=== PATIENT | female | born 1995 | race Caucasian/White ===

== ENCOUNTER 2021-09-13 22:16 | Emergency (ER) | payer SELFPAY ==
[2021-09-13 23:17] LABS: Bilirubin Neg (Negative); Blood, Urine Negative (Negative); Clarity Clear (Clear); Glucose, Urine (Dipstick) Normal (Negative); Ketone, Urine Negative (Negative); Leukocyte 100 (Negative); Nitrite Negative (Negative); Protein, Urine (Dipstick) Negative (Neg-Trace); Specific Gravity, Urine 1.015 (1.002-1.036); Urobilinogen Normal mg/dL (Less than 2)
[2021-09-13 23:25] LABS: ALT (SGPT) 7 U/L (8-55); AST (SGOT) 12 U/L (5-34); Albumin 3.6 g/dL (3.5-5.0); Alkaline Phosphatase 40 U/L (40-110); Anion Gap 12 mmol/L (10-20); BUN (Urea Nitrogen) 5 mg/dL (7.0-18.7); Bilirubin, Total 0.5 mg/dL (0.2-1.2); Calc. Creatinine Clearance 0 mL/min (70-130); Carbon Dioxide 22 mmol/L (22-29); Chloride 106 mmol/L (98-107); Estimated GFR 126; Globulin 2.7 g/dL (2.4-3.5); Glucose 88 mg/dL (70-105); Lipase 13 U/L (8-78); Magnesium 1.6 mg/dL (1.6-2.6); Potassium 3.4 mmol/L (3.5-5.1); Protein, Total 6.3 g/dL (6.0-8.3); Sodium 137 mmol/L (136-145)
[2021-09-13 23:27] LABS: Bacteria/HPF 4+ HPF (None Seen); Mucous/LPF 3+ LPF (<2+); RBC/HPF None Seen HPF (0-3); WBC/HPF 0-3 HPF (0-3)
[2021-09-13 23:32] LABS: #Eosinphils 0.1 10x3/uL (0.0-0.5); #Monocytes 0.8 10x3/uL (0.0-1.1); %Basophils 0.3 % (0.0-2.0); %Eosinophils 0.6 % (0.0-6.0); Hemoglobin 10.2 g/dL (12.0-15.5); Mean Corpuscular HGB CONC 35.3 g/dL (32.0-36.0); Mean Corpuscular Hemoglobin 30.5 pg (27.0-33.0); Mean Corpuscular Volume 86.5 fl (81.6-98.3); Mean Platelet Volume 10.2 fl (7.4-10.4); Platelet Count 270 10x3/uL (150-450); RBC Distribution Width 13.4 % (11.5-14.5); Red Blood Cell (RBC) Count 3.34 10x6/uL (3.90-5.03); White Blood Cell (WBC) Count 11.8 10x3/uL (3.5-10.5)
== END 2021-09-13 23:55 | disposition home or self-care (01) ==
LOC: CSHERS 22:16
DX: O99.891 Other specified diseases and conditions complicating pregnancy (principal); R10.30 Lower abdominal pain, unspecified; M54.50 Low back pain, unspecified; Z3A.19 19 weeks gestation of pregnancy
CPT/HCPCS: 36415; 80053; 81003; 81015; 83690; 83735; 85025; 99284

== ENCOUNTER 2021-10-09 22:12 | Day surgery (SDC) | payer SELFPAY ==
[2021-10-09] MEDS ORDERED: hydrALAZINE 20 MG/ML VIAL SLOW IVP PRN (22:45)
== END 2021-10-09 22:53 | disposition home or self-care (01) ==
LOC: CSHLD/OP 22:12
PROVIDERS: ATTEND Family Medicine
DX: O36.8130 Decreased fetal movements, third trimester, not applicable or unspecified (principal); Z3A.23 23 weeks gestation of pregnancy; Z79.899 Other long term (current) drug therapy
CPT/HCPCS: 99282

== ENCOUNTER 2021-10-12 16:53 | Outpatient (CLI) | payer OTHER | END 2021-10-12 16:54 | disposition home or self-care (01) | LOC: CSHRAD 16:53 | PROVIDERS: ATTEND Family Medicine | DX: Z34.82 Encounter for supervision of other normal pregnancy, second trimester (principal); Z3A.23 23 weeks gestation of pregnancy | CPT/HCPCS: 76805 ==

== ENCOUNTER 2022-01-04 16:42 | Day surgery (SDC) | payer OTHER ==
[2022-01-04 17:18] VITALS: BMI 22.4
[2022-01-04] MEDS ORDERED: hydrALAZINE 20 MG/ML VIAL SLOW IVP PRN (17:30)
[2022-01-04 18:17] LABS: Fetal Membranes Rupture No Membranes Rupture (No Rupture)
== END 2022-01-04 19:14 | disposition home or self-care (01) ==
LOC: CSHLD/OP 16:42
PROVIDERS: ATTEND Family Medicine
DX: O26.893 Other specified pregnancy related conditions, third trimester (principal); M54.50 Low back pain, unspecified; O36.8330 Maternal care for abnormalities of the fetal heart rate or rhythm, third trimester, not applicable or unspecified; O99.343 Other mental disorders complicating pregnancy, third trimester; F32.A Depression, unspecified; O34.523 Maternal care for prolapse of gravid uterus, third trimester; Z3A.35 35 weeks gestation of pregnancy; Z79.899 Other long term (current) drug therapy
CPT/HCPCS: 84112; 99283

== ENCOUNTER 2022-01-11 01:07 | Inpatient (IN) | payer OTHER ==
[2022-01-11 01:34] VITALS: BMI 23.1
[2022-01-11] MEDS ORDERED: hydrALAZINE 20 MG/ML VIAL SLOW IVP PRN ×3 (03:10→18:14)
[2022-01-11] MEDS ORDERED: Ondansetron PF 4 MG/2 ML Vial IVP SCH (04:15)
[2022-01-11] MEDS ORDERED: Acetaminophen 500 MG TAB PO SCH (04:45)
[2022-01-11] MEDS ORDERED: Bupivacaine 0.25% HCL 30 ML VIAL ONE (08:00)
[2022-01-11] MEDS ORDERED: Misoprostol 200 MCG TAB PR PRN (08:18)
[2022-01-11] MEDS ORDERED: Ondansetron PF 4 MG/2 ML Vial IVP PRN ×2 (08:18→18:14)
[2022-01-11] MEDS ORDERED: Methylergonovine 0.2 MG/ML VIAL IM PRN (08:18)
[2022-01-11] MEDS ORDERED: Promethazine HCl 25 MG/ML VIAL IM PRN ×2 (08:18→18:14)
[2022-01-11] MEDS ORDERED: Diphenoxylate HCl/Atropine Tablet PO PRN (08:18)
[2022-01-11] MEDS ORDERED: Acetaminophen 500 MG TAB PO PRN (08:18)
[2022-01-11] MEDS ORDERED: Ibuprofen 800 MG TAB PO PRN (08:18)
[2022-01-11] MEDS ORDERED: Carboprost 250 MCG/ML AMP IM PRN (08:18)
[2022-01-11] MEDS ORDERED: HYDROcodone/Acetaminophen 5/325 mg Tablet PO PRN (08:18)
[2022-01-11] MEDS ORDERED: Lidocaine 1% (PF) 30 ML VIAL SC PRN (08:18)
[2022-01-11] MEDS ORDERED: Penicillin G Potassium 5 MILL.UNITS in Sodium Chloride 0.9% 100 ML IVPB SCH (08:30)
[2022-01-11] MEDS ORDERED: NS w/ Oxytocin 30 units 500 ML IV SCH ×3 (08:30→18:14)
[2022-01-11] MEDS: Lactated Ringer's 1,000 ML IV SCH ×2 (08:41→16:24)
[2022-01-11] MEDS: Butorphanol Tartrate 1 MG/ML VIAL SLOW IVP PRN ×4 (08:44→15:23)
[2022-01-11 09:42] LABS: Mean Corpuscular HGB CONC 34.1 g/dL (32.0-36.0); Mean Corpuscular Hemoglobin 30.3 pg (27.0-33.0); Mean Corpuscular Volume 88.8 fl (81.6-98.3); Mean Platelet Volume 10.8 fl (7.4-10.4); Platelet Count 270 10x3/uL (150-450); RBC Distribution Width 12.6 % (11.5-14.5); White Blood Cell (WBC) Count 12.8 10x3/uL (3.5-10.5)
[2022-01-11 10:20] LABS: HBSAg Index 0.17 S/CO (0-0.99); Hep B Surf Ag Non-Reactive S/CO (NonReactive); Syphilis Antibody Nonreactive (Nonreactive); Syphilis Antibody Index 0.03 S/CO (<1.00 Non-Reactive)
[2022-01-11] MEDS: Penicillin G 2.5 MILL.units 2.5 MILL.UNITS in Premix Bag 1 BAG IVPB SCH ×2 (12:57→16:47)
[2022-01-11] MEDS ORDERED: Fentanyl 2 mcg/Bup 0.1% Cadd 100 ML ONE (16:04)
[2022-01-11] MEDS ORDERED: Preparation H Ointment 28 GM TUBE PR PRN (18:14)
[2022-01-11] MEDS ORDERED: diphenhydrAMINE 25 MG CAP PO PRN (18:14)
[2022-01-11] MEDS ORDERED: Benzocaine-Menthol 82.5 ML CAN TOP PRN (18:14)
[2022-01-11] MEDS ORDERED: Lanolin Ointment 7 GM TUBE TOP PRN (18:14)
[2022-01-11] MEDS ORDERED: Bisacodyl 10 MG SUPP PR PRN (18:14)
[2022-01-11] MEDS ORDERED: Milk Of Magnesia 30 ML UDCUP PO PRN (18:14)
[2022-01-11] MEDS: HYDROcodone/Acetaminophen 5/325 mg Tablet PO PRN (19:59)
[2022-01-11] MEDS: Ibuprofen 800 MG TAB PO SCH (21:54)
[2022-01-11] MEDS: Docusate 100 MG CAP PO SCH (21:55)
[2022-01-12] MEDS: HYDROcodone/Acetaminophen 5/325 mg Tablet PO PRN ×3 (00:44→21:49)
[2022-01-12] MEDS: Ibuprofen 800 MG TAB PO SCH ×3 (06:16→21:49)
[2022-01-12] MEDS: Docusate 100 MG CAP PO SCH ×2 (08:47→21:49)
[2022-01-12] MEDS: Prenatal Vitamin 1 TAB PO SCH (08:47)
[2022-01-12] MEDS: Ferrous Sulfate 325 MG TAB PO SCH ×2 (08:47→17:11)
[2022-01-12] MEDS: Cyclobenzaprine 10 MG TAB PO PRN (10:56)
[2022-01-12] MEDS ORDERED: DULoxetine 30 MG CAP PO SCH (11:00)
[2022-01-12] MEDS ORDERED: Boostrix 0.5 ML (Tdap) VIAL (>/=7 yrs of age) IM ONE (18:14)
[2022-01-13] MEDS: HYDROcodone/Acetaminophen 5/325 mg Tablet PO PRN ×4 (02:00→15:33)
[2022-01-13] MEDS: Ibuprofen 800 MG TAB PO SCH ×4 (05:53→21:38)
[2022-01-13] MEDS: Docusate 100 MG CAP PO SCH ×2 (08:53→21:38)
[2022-01-13] MEDS: Prenatal Vitamin 1 TAB PO SCH (08:53)
[2022-01-13] MEDS: Ferrous Sulfate 325 MG TAB PO SCH ×2 (08:53→18:14)
[2022-01-13] MEDS: Cyclobenzaprine 10 MG TAB PO PRN ×2 (08:59→15:33)
[2022-01-13] MEDS ORDERED: DULoxetine 30 MG CAP PO SCH (09:00)
[2022-01-13] MEDS: tiZANidine HCl 4 MG TAB PO SCH (21:38)
[2022-01-14] MEDS: HYDROcodone/Acetaminophen 5/325 mg Tablet PO PRN ×3 (00:15→14:07)
[2022-01-14] MEDS: Ibuprofen 800 MG TAB PO SCH ×2 (05:28→14:06)
[2022-01-14 07:52] VITALS: BP 100/60; TEMP 97
[2022-01-14] MEDS: Docusate 100 MG CAP PO SCH (08:19)
[2022-01-14] MEDS: tiZANidine HCl 4 MG TAB PO SCH ×2 (08:19→14:19)
[2022-01-14] MEDS: Prenatal Vitamin 1 TAB PO SCH (08:19)
[2022-01-14] MEDS: Ferrous Sulfate 325 MG TAB PO SCH (08:49)
[2022-01-14] MEDS ORDERED: DULoxetine 30 MG CAP PO SCH (09:00)
== END 2022-01-14 14:35 | disposition home or self-care (01) | DRG 806 ==
LOC: CSHLD/OP 01:07 → UNDOADMIN 08:47 → CSHLD 08:47 → CSHPP 20:09
PROVIDERS: ADMIT Family Medicine; ATTEND Family Medicine
PROC: 10E0XZZ Delivery of Products of Conception, External Approach (ICD-10-PCS; principal; 2022-01-11)
PROC: 10907ZC Drainage of Amniotic Fluid, Therapeutic from Products of Conception, Via Natural or Artificial Opening (ICD-10-PCS; 2022-01-11)
DX: O60.14X0 Preterm labor third trimester with preterm delivery third trimester, not applicable or unspecified (principal); O99.354 Diseases of the nervous system complicating childbirth; Z37.0 Single live birth; O99.344 Other mental disorders complicating childbirth; Z3A.35 35 weeks gestation of pregnancy; Z87.442 Personal history of urinary calculi; F32.A Depression, unspecified; Z79.899 Other long term (current) drug therapy; Z90.89 Acquired absence of other organs; G89.29 Other chronic pain; M54.50 Low back pain, unspecified; O99.892 Other specified diseases and conditions complicating childbirth
CPT/HCPCS: 36415; 85027; 86780; 86850; 86900; 86901; 87340; 88307; 99285; J0595; J2405; J2540; J2550; J2590; J3490; J7120; S0020

== ENCOUNTER 2022-08-08 20:28 | Emergency (ER) | payer BC, OTHER, SELFPAY ==
[2022-08-08 21:31] LABS: #Eosinphils 0.1 10x3/uL (0.0-0.5); #Monocytes 0.6 10x3/uL (0.0-1.1); #Neutrophils 5.1 10x3/uL (1.5-8.4); %Basophils 0.3 % (0.0-2.0); %Eosinophils 1.2 % (0.0-6.0); %Lymphocytes 20.7 % (18.0-47.0); %Monocytes 7.8 % (0.0-10.0); %Neutrophils 69.7 % (40.0-75.0); Hemoglobin 11.7 g/dL (12.0-15.5); Mean Corpuscular HGB CONC 33.2 g/dL (32.0-36.0); Mean Corpuscular Hemoglobin 28.1 pg (27.0-33.0); Mean Corpuscular Volume 84.4 fl (81.6-98.3); Mean Platelet Volume 9.6 fl (7.4-10.4); Platelet Count 313 10x3/uL (150-450); RBC Distribution Width 12.4 % (11.5-14.5); Red Blood Cell (RBC) Count 4.17 10x6/uL (3.90-5.03); White Blood Cell (WBC) Count 7.3 10x3/uL (3.5-10.5)
[2022-08-08 21:44] LABS: ALT (SGPT) 11 U/L (8-55); AST (SGOT) 15 U/L (5-34); Albumin 4.1 g/dL (3.5-5.0); Alkaline Phosphatase 50 U/L (40-110); Anion Gap 12 mmol/L (10-20); BUN (Urea Nitrogen) 10 mg/dL (7.0-18.7); Bilirubin, Total 1.8 mg/dL (0.2-1.2); Calc. Creatinine Clearance 0 mL/min (70-130); Calcium 8.9 mg/dL (7.8-10.44); Carbon Dioxide 22 mmol/L (22-29); Chloride 110 mmol/L (98-107); Estimated GFR 108; Globulin 2.8 g/dL (2.4-3.5); Glucose 91 mg/dL (70-105); Potassium 3.5 mmol/L (3.5-5.1); Protein, Total 6.9 g/dL (6.0-8.3); Sodium 140 mmol/L (136-145)
[2022-08-08] MEDS ORDERED: Ondansetron ODT 4 MG TAB ONE (22:26)
[2022-08-08] MEDS ORDERED: Ketorolac Tromethamine 30 MG/ML VIAL ONE (22:26)
== END 2022-08-08 23:52 | disposition home or self-care (01) ==
LOC: CSHERS 20:28
DX: N94.6 Dysmenorrhea, unspecified (principal)
CPT/HCPCS: 36415; 80053; 85025; 96372; 99284; J1885; Q0162